=== PATIENT | male | born 1965 | race Caucasian/White ===

== ENCOUNTER 2017-11-03 14:52 | Emergency (ER) | payer MEDICAID ==
[2017-11-03] MEDS ORDERED: Lidocaine 1% 10 ML MDV INJECT ONE (15:06)
--- NOTE | 2017-11-03 15:16 | EDM.PDOC ---
ED HPI GENERAL MEDICAL PROBLEM - General Chief Complaint: Laceration Stated Complaint: MOUTH INJURY Time Seen by Provider: 11/03/17 15:06 Source of Information: Reports: Patient History Limitations: Reports: No Limitations - History of Present Illness INITIAL COMMENTS - FREE TEXT/NARRATIVE: 51-year-old male presents to the ED with an acute blunt trauma to his lower midline of lip. States he was working at home on an ongoing when it suddenly let go and struck him in the mouth. His is resulted in a split lip in the midline. He did not injure the upper lip and there is no dental injuries. Tetanus toxoid is up to date. He denies any injuries to his face nose or neck. Onset: Today Onset Date: 11/03/17 Onset Time: 14:30 Duration: Minutes: Location: Reports: Face (Midline lower lip) Quality: Reports: Ache Severity: Mild Improves with: Reports: None Worsens with: Reports: Movement Context: Reports: Trauma (Blunt trauma to the lower lip). Denies: Activity, Exercise, Lifting, Sick Contact Associated Symptoms: Reports: No Other Symptoms Treatments CHIP FRIER: Reports: Other (see below) (None.) lower lip Pain Score (Numeric/FACES): 4 - Related Data Allergies Allergy/AdvReac Type Severity Reaction Status Date / Time No Known Allergies Allergy Verified 11/03/17 15:05 Home Meds: Home Meds . [No Known Home Meds] 11/03/17 [History] Social & Family History - Living Situation & Occupation Living situation: Reports: Occupation: Employed ED ROS GENERAL - Review of Systems Review Of Systems: See Below Constitutional: Reports: No Symptoms HEENT: Reports: Glasses Respiratory: Reports: No Symptoms Cardiovascular: Reports: No Symptoms Endocrine: Reports: No Symptoms GI/Abdominal: Reports: No Symptoms : Reports: No Symptoms Musculoskeletal: Reports: Back Pain Skin: Reports: No Symptoms (Occasional low back pain) Neurological: Reports: No Symptoms Psychiatric: Reports: No Symptoms Hematologic/Lymphatic: Reports: No Symptoms Immunologic: Reports: No Symptoms ED EXAM, SKIN/RASH Exam: See Below General Appearance: Alert, WD/WN, No Apparent Distress, Other (Obvious laceration midline lower lip.) Eye Exam: Bilateral Eye: Normal Inspection Nose: Normal Inspection, Normal Mucosa Throat/Mouth: Normal Inspection, Normal Teeth, Normal Gums, Other (Is a laceration involving the vermilion border from the inner aspect to the outer aspect of the lip in the midline of the lower lip.). No: Normal Lips Head: Atraumatic, Normocephalic Neck: Normal Inspection, Supple, Non-Tender, Full Range of Motion. No: Lymphadenopathy (L), Lymphadenopathy (R) ED SKIN PROCEDURES - Laceration/Wound Repair Middle Face Lac/Wound length In cm: 2.0 (Midline through the [place] border lower lip) Appearance: Subcutaneous, Clean Distal NVT: Neuro & Vascular Intact Anesthetic Type: Local Local Anesthesia - Lidocaine (Xylocaine): 1% Plain Local Anesthetic Volume: 2cc Skin Prep: Saline Suture Type: Interrupted, Simple Suture Size: 4-0 # of Sutures: 7 Repaired with: Vicryl Course - Vital Signs Last Recorded V/S: Last Vital Signs Temp 36.2 C 11/03/17 15:01 Pulse 80 11/03/17 15:01 Resp 18 11/03/17 15:01 BP 143/102 H 11/03/17 15:01 Pulse Ox 96 11/03/17 15:01 - Orders/Labs/Meds Meds: Medications Discontinued Medications Generic Name Dose Route Start Last Admin Trade Name Freq PRN Reason Stop Dose Admin Lidocaine HCl 10 ml 11/03/17 15:06 11/03/17 15:14 Xylocaine 1% INJECT 11/03/17 15:07 10 ml ONETIME ONE Administration - Radiology Interpretation Free Text/Narrative:: 52-year-old male presents to the ED with essentially blunt trauma to his midline of his lower lip. This is split the vermilion border with a gaping laceration. He will require suture repair. Plan will be to numb him up with 1% buffered lidocaine and then sutured with Vicryl sutures. - Re-Assessments/Exams Free Text/Narrative Re-Assessment/Exam: 11/03/17 15:44 wound was irrigated. It was then anesthetized with 1% non- buffered lidocaine. Wound was then repaired using 7 4-0 Vicryl sutures to provide hemostasis and cosmesis. Sutures should fall out on her own over the next 7-10 days. He will follow-up as needed. Departure - Departure Time of Disposition: 15:41 Disposition: Home, Self-Care 01 Condition: Fair Clinical Impression: Laceration of lower lip Qualifiers: Encounter type: initial encounter Qualified Code(s): S01.511A - Laceration without foreign body of lip, initial encounter - Discharge Information *PRESCRIPTION DRUG MONITORING PROGRAM REVIEWED*: Not Applicable *COPY OF PRESCRIPTION DRUG MONITORING REPORT IN PATIENT ALLISON: Not Applicable Instructions: Mouth Laceration Referrals: Janine Bassett [employer] [Primary Care Provider] - Forms: ED Department Discharge Additional Instructions: Evaluation in the emergency him today in regards to blunt force trauma to lower lip. This resulted in a 1.5 cm laceration through the vermilion border of your lower lip. The wound was cleansed and then sutured 7 with sutures that should dissolve on their own over the next 7-10 days. may pull them out as they become loose.Occasionally they have to be cut similar to previous sutures to slip them up and cut underneath the not and they will come out. May eat and drink as per normal. Motrin 600 mg every 6 hours as needed for pain relief.
== END 2017-11-03 15:55 | disposition home or self-care (01) ==
LOC: JD.ED 14:52
DX: S01.511A Laceration without foreign body of lip, initial encounter (principal); W22.8XXA Striking against or struck by other objects, initial encounter
CPT/HCPCS: 12011; 99283-25

== ENCOUNTER 2024-10-06 17:54 | Emergency (ER) | payer MEDICAID ==
[2024-10-06 18:22] LABS: BASOPHILS ABSOLUTE AUTO 0.1 K/mm3 (0.0-0.2); BASOPHILS PERCENT AUTO 0.8 % (0.0-1.0); EOSINOPHILS ABSOLUTE AUTO 0.1 K/mm3 (0.0-0.4); EOSINOPHILS PERCENT AUTO 1.2 % (0.0-6.0); IMMATURE GRAN ABSOLUTE AUTO 0.02 K/mm3 (0.00-0.05); IMMATURE GRAN PERCENT AUTO 0.3 % (0.0-0.4); LYMPHOCYTES ABSOLUTE AUTO 1.5 K/mm3 (1.0-4.8); LYMPHOCYTES PERCENT AUTO 19.4 % (24.0-44.0); MEAN PLATELET VOLUME 10.4 fl (9.4-12.4); MONOCYTES ABSOLUTE AUTO 0.5 K/mm3 (0.0-0.8); MONOCYTES PERCENT AUTO 6.2 % (0.0-8.0); NEUTROPHILS ABSOLUTE AUTO 5.4 K/mm3 (1.8-7.7); NEUTROPHILS PERCENT AUTO 72.1 % (41.0-71.0); NRBC ABSOLUTE 0.00 (0.00-0.02); NRBC PERCENT 0.0 % (0.0-0.2); PLATELET COUNT,PLT 259 K/mm3 (150-400); RED BLOOD CELL COUNT 5.42 M/mm3 (4.52-5.90); WHITE BLOOD CELL COUNT,WBC 7.47 K/mm3 (3.9-11.3)
[2024-10-06] MEDS: Ketorolac 30 MG/ML SDV IVPUSH ONE (18:29)
[2024-10-06 18:43] LABS: A/G RATIO 1.2 (1-2); ALANINE AMINOTRANSFERASE,ALT 34.0 U/L (16-63); ASPARTATE AMNIOTRANSFERASE,AST 21.0 U/L (15-37); BILIRUBIN TOTAL 0.6 mg/dL (0.2-1.0); BLOOD UREA NITROGEN,BUN 14.0 mg/dL (7-18); CARBON DIOXIDE,CO2 27.0 mEq/L (21-32); CHLORIDE,CL 104.0 mEq/L (98-107); CREATININE 0.9 mg/dL (0.7-1.3); EST CRCL DRUG DOSING (CG) 84.44 mL/min; ESTIMATED GFR 98.0 mL/min (>60); GLUCOSE RANDOM 104.0 mg/dL (70-99); POTASSIUM,K 4.2 mEq/L (3.5-5.1); PROTEIN TOTAL,TP 7.2 g/dl (6.4-8.2); SODIUM,NA 141.0 mEq/L (136-145)
[2024-10-06] MEDS: Acetaminophen/oxyCODONE 325-5 MG Tab PO ONE (19:43)
[2024-10-06 20:56] LABS: APPEARANCE,URINE CLEAR (Clear); GLUCOSE,URINE NEGATIVE (Negative); OCCULT BLOOD,URINE NEGATIVE (Negative)
[2024-10-06] MEDS ORDERED: Naloxone 0.4 MG/ML SDV IVPUSH PRN ×2 (21:35→22:50)
[2024-10-06] MEDS: fentaNYL 100 MCG/2 ML SDV IVPUSH ONE (21:55)
[2024-10-06] MEDS: methylPREDNISolone Sodium Succinate 125 MG/2 ML SDV IVPUSH ONE (22:24)
== END 2024-10-06 23:35 | disposition home or self-care (01) ==
LOC: JD.ED 17:54
DX: M54.50 Low back pain, unspecified (principal); Z88.1 Allergy status to other antibiotic agents; Z79.899 Other long term (current) drug therapy
CPT/HCPCS: 36415; 72131; 76870; 80053; 81003; 85025; 93975; 96361; 96374; 96375; 99284; A9270; J1885; J2919; J3010; J7030